=== PATIENT | female | born 1990 | race Two or more races ===

== ENCOUNTER 2018-12-04 17:33 | Inpatient (IN) | payer SELFPAY ==
[~2018-12-04] VITALS: Ht 165.1 cm; Wt 78.5 kg
[2018-12-04] MEDS ORDERED: DEXT 5%/LR + PITOCIN 20UNITS/L 1,000 ML IV SCH (18:19)
[2018-12-04] MEDS ORDERED: CARBOPROST TROMETHAMINE 250 MCG/ML AMPUL IM PRN (18:30)
[2018-12-04] MEDS ORDERED: DINOPROSTONE 10MG VAGINAL INSERT VG SCH (18:30)
[2018-12-04] MEDS ORDERED: LIDOCAINE HCL 1% 20ML VIAL (Pyxis) INJ INFIL SCH (18:30)
[2018-12-04] MEDS ORDERED: METHYLERGONOVINE MALEATE 0.2 MG/ML IM PRN (18:30)
[2018-12-04] MEDS ORDERED: NALOXONE HCL 0.4 MG/ML 1ML VIAL IM PRN (18:30)
[2018-12-04 18:53] LABS: BASOPHILS % 0.2 % (0.0-2.0); EOSINOPHILS % 0.5 % (0.0-5.0); HEMATOCRIT. 38.2 % (36.0-48.0); HEMOGLOBIN. 13.1 g/dL (12.0-16.0); LYMPHOCYTES % 16.9 % (20.0-50.0); MEAN CORPUSCULAR HEMOGLOBIN 31.8 pg (28.0-32.0); MEAN PLATELET VOLUME 9.4 fl (7.4-10.4); MONOCYTES % 5.2 % (2.0-8.0); NEUTROPHILS % 77.2 % (40.0-76.0); PLATELET 170 x1000/uL (130-400); RED BLOOD CELL COUNT 4.11 mill/uL (4.2-5.4); RED CELL DISTRIBUTION WIDTH 13.7 % (11.6-14.6)
[2018-12-04] MEDS: LACTATED RINGERS 1,000 ML IV SCH ×2 (18:53→22:40)
[2018-12-04 18:57] LABS: CHLORIDE 107 mEq/L (98-107)
[2018-12-04 19:03] LABS: INR 0.9; PROTHROMBIN TIME 9.7 sec (9.6-11.0)
[2018-12-04 19:53] LABS: HEPATITIS B SURFACE ANTIGEN NEGATIVE
[2018-12-04 23:15] LABS: CLARITY URINE CLEAR (CLEAR); COLOR URINE YELLOW (YELLOW); KETONES URINE 2+ (NEGATIVE); LEUKOCYTE ESTERASE URINE TRACE (NEGATIVE); NITRITE URINE NEGATIVE (NEGATIVE); OCCULT BLOOD URINE NEGATIVE (NEGATIVE); PH URINE 5.5 (4.5-8.0); PROTEIN URINE NEGATIVE (NEGATIVE); SPECIFIC GRAVITY URINE 1.021 (1.005-1.030)
[2018-12-04 23:24] LABS: *AMPHETAMINES SCREEN URINE NEGATIVE (NEGATIVE); *BARBITURATES SCREEN URINE NEGATIVE (NEGATIVE); *BENZODIAZEPINES SCREEN URINE NEGATIVE (NEGATIVE); *COCAINE SCREEN URINE NEGATIVE (NEGATIVE)
[2018-12-04 23:25] LABS: CANNABINOID URINE SCREEN NEGATIVE (NEGATIVE); METHADONE URINE SCREEN NEGATIVE (NEGATIVE); OPIATES URINE SCREEN NEGATIVE (NEGATIVE); PHENCYCLIDINE URINE SCREEN NEGATIVE (NEGATIVE)
[2018-12-05] MEDS: BUTORPHANOL TARTRATE 2 MG/ML VIAL IV PRN ×2 (03:40→11:08)
[2018-12-05] MEDS: LACTATED RINGERS 1,000 ML IV SCH ×3 (04:29→20:55)
[2018-12-05] MEDS ORDERED: DEXT 5%/LR + PITOCIN 20UNITS/L 1,000 ML IV SCH (07:31)
[2018-12-05] MEDS ORDERED: PENICILLIN G POTASSIUM 5 MMU in DEXT 5% WATER 100 ML IV SCH (07:45)
[2018-12-05] MEDS ORDERED: PREN1TAB78 PO (07:56)
[2018-12-05] MEDS ORDERED: MAGNESIUM (07:56)
[2018-12-05] MEDS ORDERED: CALC-1042 PO (07:56)
[2018-12-05] MEDS ORDERED: ROPIVACAINE HCL/PF EPIDURAL 200 ML EP ONE (13:00)
[2018-12-05] MEDS: PENICILLIN G POTASSIUM 2.5 MMU in DEXTROSE 5% WATER 50 ML IV SCH ×2 (13:40→20:29)
[2018-12-05] MEDS ORDERED: MINERAL OIL 30ML BOTTLE PR SCH (19:00)
[2018-12-05] MEDS ORDERED: ACETAMINOPHEN 500MG TABLET PO SCH (22:15)
[2018-12-05] MEDS ORDERED: GENTAMICIN 100MG PREMIX 50 ML IV SCH (23:00)
[2018-12-06 00:15] VITALS: BP 120/77
[2018-12-06] MEDS ORDERED: DEXT 5%/LR + PITOCIN 20UNITS/L 1,000 ML IV SCH (00:18)
[2018-12-06] MEDS ORDERED: IBUPROFEN 400MG TABLET PO PRN (00:30)
[2018-12-06] MEDS ORDERED: LANOLIN OINT 7GM TUBE TOP PRN (00:30)
[2018-12-06] MEDS ORDERED: RHO(D) IMMUNE GLOBULIN 300 MCG/SYR IM PRN (00:30)
[2018-12-06] MEDS ORDERED: METHYLERGONOVINE MALEATE 0.2 MG/ML IM PRN (00:30)
[2018-12-06] MEDS ORDERED: GENTAMICIN 100MG PREMIX 100 ML IV ONE (00:30)
[2018-12-06 04:00] VITALS: BP 118/80
[2018-12-06] MEDS: IBUPROFEN 800MG TABLET PO PRN ×3 (05:20→22:07)
[2018-12-06 08:00] VITALS: BP 104/64
[2018-12-06] MEDS ORDERED: CLINDAMYCIN 900 MG PREMIX 50 ML IV SCH (08:00)
[2018-12-06] MEDS ORDERED: CLINDAMYCIN 900 MG in DEXTROSE 5% WATER 50 ML IV SCH (08:00)
[2018-12-06] MEDS ORDERED: PRENATAL VIT/FE FUMARATE/FA TABLET PO SCH (09:00)
[2018-12-06 16:00] VITALS: BP 106/61
[2018-12-06 20:00] VITALS: BP 109/71
[2018-12-07 04:20] VITALS: BP 105/70
[2018-12-07] MEDS: IBUPROFEN 800MG TABLET PO PRN (05:34)
[2018-12-07 06:01] LABS: BASOPHILS % 0.4 % (0.0-2.0); EOSINOPHILS % 1.5 % (0.0-5.0); HEMATOCRIT. 33.1 % (36.0-48.0); HEMOGLOBIN. 11.5 g/dL (12.0-16.0); LYMPHOCYTES % 24.4 % (20.0-50.0); MEAN CORPUSCULAR HEMOGLOBIN 32.9 pg (28.0-32.0); MEAN PLATELET VOLUME 9.6 fl (7.4-10.4); MONOCYTES % 6.6 % (2.0-8.0); NEUTROPHILS % 67.1 % (40.0-76.0); PLATELET 153 x1000/uL (130-400); RED BLOOD CELL COUNT 3.48 mill/uL (4.2-5.4); RED CELL DISTRIBUTION WIDTH 14.1 % (11.6-14.6)
[2018-12-07] MEDS ORDERED: BENZOCAINE/LANOLIN/ALOE VERA SPRAY TOP PRN (08:00)
[2018-12-07 08:20] VITALS: BP 112/57
== END 2018-12-07 12:10 | disposition home or self-care (01) | DRG 560 ==
LOC: 8 EST LDRP 17:33 → 8EST 12-06 00:59 → 8 EST LDRP 12-06 03:30
PROVIDERS: ADMIT Obstetrics & Gynecology; ATTEND Obstetrics & Gynecology
PROC: 10E0XZZ Delivery of Products of Conception, External Approach (ICD-10-PCS; principal; 2018-12-06)
PROC: 0W8NXZZ Division of Female Perineum, External Approach (ICD-10-PCS; 2018-12-06)
PROC: 3E0P7VZ Introduction of Hormone into Female Reproductive, Via Natural or Artificial Opening (ICD-10-PCS; 2018-12-06)
PROC: 3E0R3BZ Introduction of Anesthetic Agent into Spinal Canal, Percutaneous Approach (ICD-10-PCS; 2018-12-06)
PROC: 00HU33Z Insertion of Infusion Device into Spinal Canal, Percutaneous Approach (ICD-10-PCS; 2018-12-06)
DX: O41.1230 Chorioamnionitis, third trimester, not applicable or unspecified (principal); Z37.0 Single live birth; Z3A.39 39 weeks gestation of pregnancy
CPT/HCPCS: 36415; 80305; 86592; 86703; 86762; 86850; 86900; 87340; 99281; J0595; J1580; J2540; J2590; J2795; J3490; J7060; A4315